=== PATIENT | male | born 1950 | race Caucasian/White ===

== ENCOUNTER 2016-09-25 20:08 | Emergency (ER) | payer MEDICARE, OTHER ==
[~2016-09-25] VITALS: Ht 172.7 cm; Wt 81.0 kg
[2016-09-25 20:09] VITALS: BP 122/71; PULSE 77; RESP 16; TEMP 97.8; O2SAT 97
--- NOTE | 2016-09-25 21:34 | PD ---
HPI Chief Complaint: Fall Time Seen by Provider: 21:22 Travel History International Travel<30 days: No Contact w/Intl Traveler<30days: No Traveled to known affect area: No History of Present Illness HPI 66-year-old male was brought in by a female partner for evaluation. Patient's friend states the patient drinks alcohol daily. Patient had alcohol today and fell. Patient came home and tell his partner about the fall. It was unwitnessed fall. Patient denies any headache. Patient denies any neck pain. Patient denies any chest pain or shortness of breath. Patient denies abdominal pain. Patient denies any focal weakness or numbness of the extremity. Patient denies any back pain. Patient states that he did not injure himself during the fall. Patient denies any illicit drug abuse. [facility] Social History Tobacco Use: No Allergies-Medications (Allergen,Severity, Reaction): Coded Allergies: No Known Allergies (Verified Allergy, Unknown, 11/10/02) Uncoded Allergies: NONE (Allergy, Unknown, 11/11/02) Review of Systems General / Constitutional: No: Fever Eyes: No: Visual changes HENT: No: Headaches Cardiovascular: No: Chest Pain or Discomfort Respiratory: No: Shortness of Breath Gastrointestinal: No: Abdominal Pain Genitourinary: No: Dysuria Musculoskeletal: No: Pain Skin: No Rash Neurologic: No: Weakness Psychiatric: No: Depression Endocrine: No: Polydipsia Hematologic/Lymphatic: No: Easy Bruising Physical Exam Narrative GENERAL: Well-nourished, well-developed patient. SKIN: Focused skin assessment warm/dry. HEAD: Normocephalic. EYES: No scleral icterus. No injection or drainage. NECK: Supple, trachea midline. No JVD or lymphadenopathy. CARDIOVASCULAR: Regular rate and rhythm without murmurs, gallops, or rubs. RESPIRATORY: Breath sounds equal bilaterally. No accessory muscle use. GASTROINTESTINAL: Abdomen soft, non-tender, nondistended. MUSCULOSKELETAL: No cyanosis, or edema. BACK: Nontender without obvious deformity. No CVA tenderness. Neurologic exam: Patient's awake and alert oriented 3. Patient can ambulate by himself. No obvious focal neurological deficit. Data Data Last Documented VS Vital Signs Date Time Temp Pulse Resp B/P Pulse Ox O2 Delivery O2 Flow Rate FiO2 09/25/16 20:09 97.8 77 16 122/71 97 Room Air MDM Medical Decision Making Medical Screen Exam Complete: Yes Emergency Medical Condition: Yes Differential Diagnosis Differential diagnosis including alcohol intoxication, head injury, neck injury , chest injury, abdominal injury, extremity injury. Narrative Course 66-year-old male with history of EtOH abuse and status post fall. Patient's partner brought him to the ED for evaluation. I don't see any evidence of acute problem. Patient has no complaint now. Diagnosis Primary Impression: Alcohol intoxication Qualified Code: F10.920 - Alcohol intoxication, uncomplicated Patient Instructions: General Instructions Additional Instructions: Follow-up with personal physician as needed. Return if any problem. Med/Other Pt SpecificInfo: No Change to Meds Disposition: 01 DISCHARGE HOME Condition: Stable Ever Holloway MD Sep 25, 2016 21:34
== END 2016-09-25 22:00 | disposition home or self-care (01) ==
LOC: NEPD 20:08
DX: F10.920 Alcohol use, unspecified with intoxication, uncomplicated (principal)
CPT/HCPCS: 99282